=== PATIENT | male | born 1945 | race Caucasian/White ===

== ENCOUNTER 2025-06-27 11:00 | Day surgery (SDC) | payer MEDICARE, OTHER, SELFPAY ==
--- OUTSIDE RECORDS SUMMARY | 2025-06-20 17:28 | XMS_ITS | Encounter Summary ---
Author Organization [facility] Address Pending sale to [facility] [address] [address] Phone Care Team Providers Care Vault Mechanic Name Role Phone Osvaldo Menjivar MD Unavailable [phone] Marek Morley MD Primary Care Provider [phone] Lola Salgado MD, MS Unavailable Jorgito Edge MD Unavailable [phone] Encounter Details Date Type Department Care Team (Late st Contact Info) Description 07/04/2024 Procedure Pass [facility] Electrophysiology Lab [address] [place] [address] Social History Tobacco Use Types Packs/Day Years Used Date Smoking Tobacco: Former Smokeless Tobacco: Never Alcohol Use Standard Drinks/Week Comments Not Asked 0 (1 standard drink = 0.6 oz pur e alcohol) Education Answer Date Recorded Are you interested in more education? Not on dorinda e 01/01/2023 Are you concerned about learning? Not on file 01/01/2023 No 01/01/2023 No 01/01/2023 Digital Access Answer Date Recorded No 02/01/2023 No 02/01/2023 Reliable internet access at home? Not on file 02/01/2023 Device with a working camera? Not on file Sex and Gender Information Value Date Recorded Sex Assigned at Not on file Legal Sex Male 11:44 AM EST Gender Identity Not on file Sexual Orientation Not on file documented as of this encounter Plan of Treatment Upcoming Encounters Date Type Department Care Team (Late st Contact Info) Description 07/11/2024 Procedure Pass [facility] EKG [address] [place] [address] 07/04/2025 7:15 AM EDT Hospital Encounter [facility] EKG [address] [place] [address] Lola Salgado MD, MS [address] [address] [email or web address] Arrived 08/16/2025 11:30 AM EST Office Visit [facility]- Cardiology [address] [address] Rand Yanez, SHUTTLELESS LOOM WEAVER [address] [address] [email or web address] documented as of this encounter Visit Diagnoses Not on filedocumented in this encounter Additional Health Concerns Assessment Noted Time PHQ-2 Depression Total Score: 0 02/13/20 21 9:09 AM EDT documented as of this encounter Care Teams Vault Mechanic Relationship Specialty Start Date End Date Marek Morley MD [address] [place] [address] PCP - General Internal Medicine 10/29/22 Osvaldo Menjivar MD [address] [place] [address] Soyfreeze Operator Cardiology 11/04/15 Lola Salgado MD, MS [address] [address] [email or web address] Cardiology 02/25/23 Jorgito Edge MD [address] [place] [address] Interventional Cardiology 04/20/24 documented as of this encounter Additional Source Comments The information contained in this document represents components of the legal health record. It is not the complete legal health record.[facility]
--- OUTSIDE RECORDS SUMMARY | 2025-06-20 17:28 | XMS_ITS | Encounter Summary ---
Author Organization [facility] Address [facility] [employer] [address] [address] Phone Care Team Providers Care Engineering And Operations Director Name Role Phone Jonathan Okeefe MD Primary Care Provider Unavaila Osvaldo Hernandez MD Unavailable [phone] Alvino Burns MD Unavailable Unavail able Marek Morley MD Primary Care Provider [phone] Lola Salgado MD, MS Unavailable Jorgito Edge MD Unavailable [phone] Encounter Details Date Type Department Care Team (Latest Contact Info) Description 04/03/2022 Ancillary Orders [facility] Cardiovascular Clinic [address] [place] [address] Osvaldo Luong MD [email or web address] Other chest pain Social History Tobacco Use Types Packs/Day Years Used Date Smoking Tobacco: Former Smokeless Tobacco: Never Alcohol Use Standard Drinks/Week Comments Not Asked 0 (1 standard drink = 0.6 oz pur e alcohol) Sex and Gender Information Value Date Recorded Sex Assigned at Not on file Legal Sex Male 11:44 AM EST Gender Identity Not on file Sexual Orientation Not on file documented as of this encounter Plan of Treatment Upcoming Encounters Date Type Department Care Team (Late st Contact Info) Description 07/11/2024 Procedure Pass [facility] EKG [address] [place] [address] 07/04/2025 7:15 AM EDT Hospital Encounter [facility] EKG [address] [place] [address] Lola Salgado MD, MS [address] [address] [email or web address] 08/16/2025 11:30 AM EST Office Visit [address] [address] Rand Yanez, STAMP ANALYST [address] [address] [email or web address] documented as of this encounter Visit Diagnoses Diagnosis Other chest pain Paroxysmal atrial fibrillation Atrial fibrillation documented in this encounter Additional Health Concerns Assessment Noted Time PHQ-2 Depression Total Score: 0 02/13/20 21 9:09 AM EDT documented as of this encounter Care Teams Engineering And Operations Director Relationship Specialty Start Date End Date Jonathan Okeefe MD PCP - General Internal Medicine 10/02/15 10/28/22 Marek Morley MD [address] [place] [address] PCP - General Internal Medicine 10/29/22 Osvaldo Menjivar MD [address] [place] [address] Skein Straightener Cardiology 11/04/15 Alvino Burns MD Referring Physician Cardiology 11/04/15 02/24/23 Lola Salgado MD, MS [address] [place] [address] [email or web address] Cardiology 02/25/23 Jorgito Edge MD [address] [place] [address] Interventional Cardiology 04/20/24 documented as of this encounter Additional Source Comments The information contained in this document represents components of the legal health record. It is not the complete legal health record.[facility]
--- OUTSIDE RECORDS SUMMARY | 2025-06-20 17:28 | XMS_ITS | Encounter Summary ---
Author Organization [facility] Address [facility] [address] [place] [address] Phone Care Team Providers Care Rib Cutter Name Role Phone Osvaldo Menjivar MD Unavailable [phone] Marek Morley MD Primary Care Provider [phone] Lola Salgado MD, MS Unavailable [phone] Jorgito Edge MD Unavailable [phone] Encounter Details Date Type Department Care Team (Late st Contact Info) Description 07/03/2024 Procedure Pass [facility] [address] [place] [address] Social History Tobacco Use Types Packs/Day Years [...] st Contact Info) Description 07/11/2024 Procedure Pass [facility] EKG [address] [place] [address] 07/04/2025 7:15 AM EDT Hospital Encounter [facility] EKG [address] [place] [address] Lola Salgado MD, MS [address] [address] [email or web address] Arrived 08/16/2025 11:30 AM EST Office Visit [facility]- [address] [address] Rand Yanez, LOOM OPERATOR APPRENTICE [address] [address] [email or web address] documented as of this encounter Visit Diagnoses Not on filedocumented in this encounter Additional Health Concerns Assessment Noted Time PHQ-2 Depression Total Score: 0 02/13/20 21 9:09 AM EDT documented as of this encounter Care Teams Rib Cutter Relationship Specialty Start Date End Date Marek Morley MD [address] [place] [address] PCP - General Internal Medicine 10/29/22 Osvaldo Menjivar MD [address] [place] [address] Special Weapons Unit Officer Cardiology 11/04/15 Lola Salgado MD, MS [address] [place] [address] [email or web address] Cardiology 02/25/23 Jorgito Edge MD [address] [place] [address] Interventional Cardiology 04/20/24 documented as of this encounter Additional Source Comments The information contained in this document represents components of the legal health record. It is not the complete legal health record.[facility]
--- OUTSIDE RECORDS SUMMARY | 2025-06-20 17:28 | XMS_ITS | Encounter Summary ---
Author Organization [facility] Address [facility] [employer] [address] [address] Phone Care Team Providers Care Tobacco Hanger Name Role Phone Jonathan Okeefe MD Primary Care Provider Unavaila Osvaldo Hernandez MD Unavailable [phone] Alvino Burns MD Unavailable Unavail able Marek Morley MD Primary Care Provider [phone] Lola Salgado MD, MS Unavailable Jorgito Edge MD Unavailable [phone] Encounter Details Date Type Department Care Team (Latest Contact Info) Description 04/03/2022 Ancillary Orders [facility] Cardiovascular Clinic [address] [place] [address] Osvaldo Luong MD [email or web address] Other chest pain Social History Tobacco Use [...] st Contact Info) Description 07/11/2024 Procedure Pass [facility] EKG [address] [place] [address] 07/04/2025 7:15 AM EDT Hospital Encounter [facility] EKG [address] [place] [address] Lola Salgado MD, MS [address] [address] [email or web address] 08/16/2025 11:30 AM EST Office Visit [address] [address] Rand Yanez, RECAPPER [address] [address] [email or web address] documented as of this encounter Visit Diagnoses Diagnosis Other chest pain Paroxysmal atrial fibrillation Atrial fibrillation documented in this encounter Additional Health Concerns Assessment Noted Time PHQ-2 Depression Total Score: 0 02/13/20 21 9:09 AM EDT documented as of this encounter Care Teams Tobacco Hanger Relationship Specialty Start Date End Date Jonathan Okeefe MD PCP - General Internal Medicine 10/02/15 10/28/22 Marek Morley MD [address] [place] [address] PCP - General Internal Medicine 10/29/22 Osvaldo Menjivar MD [address] [place] [address] Power Plant Mechanic Cardiology 11/04/15 Alvino Burns MD Referring Physician Cardiology 11/04/15 02/24/23 Lola Salgado MD, MS [address] [place] [address] [email or web address] Cardiology 02/25/23 Jorgito Edge MD [address] [place] [address] Interventional Cardiology 04/20/24 documented as of this encounter Additional Source Comments The information contained in this document represents components of the legal health record. It is not the complete legal health record.[facility]
--- OUTSIDE RECORDS SUMMARY | 2025-06-20 17:28 | XMS_ITS | Encounter Summary ---
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; Chronic anticoagulation Social History Tobacco Use Types Packs/Day Years [...] st Contact Info) Description 07/11/2024 Procedure Pass [facility] EKG [address] [place] [address] 07/04/2025 7:15 AM EDT Hospital Encounter [facility] EKG [address] [place] [address] Lola Salgado MD, MS [address] [address] [email or web address] Arrived 08/16/2025 11:30 AM EST Office Visit [facility] [address] [address] Rand Yanez COLLET MAKER [address] [address] [email or web address] documented as of this encounter Results * CT 3D Reconstruction CT Angio Chest (07/03/2024 11:44 AM EDT) Anatomical Region Laterality Modality Chest Computed Tomogra phy 07/03/2024 12:3 2 PM EDT Impressions 07/10/2024 11:18 AM EST * 3 right and 2 left pulmonary veins. * The esophagus is posterior to the left atrium, left side of the spine and close to the left inferior pulmonary vein. * No left atrial appendage thrombus. ATTESTATION: Van Perez, as teaching physician have reviewed the images, if any, for this patient's exam, and if necessary, have edited the report originally created by Mike Interiano. Narrative 07/10/2024 11:18 AM EST Reason for exam (per EHR order): * Atrial fibrillation pre or post ablation TECHNIQUE: Cardiac CT Angiography Scans: Angiogram - ECG gated Cardiac Delay (60 sec) - ECG gated Cardiac Oral contrast: None. Intravenous contrast: Per protocol. 3D Post-processinD Volume-rendering COMPARISON: No prior chest CT FINDINGS: CARDIAC: Pulmonary Veins: There are 3 right and 2 left pulmonary veins. The esophagus is posterior to the left atrium, left side of the spine and close to the left inferior pulmonary vein. Left atrial appendage: There is no evidence of a filling defect in both arterial and delayed images to suggest thrombus within the left atrial appendage. Other Cardiac Findings: Coronary Arteries: This study was not optimized for the assessment of the coronary arteries. Mild coronary artery calcifications. Prior LAD stent. Chambers: Mild left atrial dilation with a 2.9 x 2.3 cm focal outpouching of the anterior wall mild right atrial dilation The right ventricle is normal in size. The left ventricle is normal in size. Myocardium: Normal left ventricular thickness. Valves: Trileaflet aortic valve with mild leaflet calcifications. Normal mitral valve. Pericardium: No pericardial effusion, calcification or thickening. Aorta: Normal size. Moderate atherosclerosis. Pulmonary arteries: Normal size. INCIDENTAL FINDINGS: Scattered calcified granulomas, no suspicious pulmonary nodules. Degenerative disease in visualized thoracic spine. Normal-appearing chest wall. 3 cm hypodense lesion in the liver, likely a cyst. Procedure Note Alvino Wayne MD - 07/10/2024 Reason for exam (per EHR order): * Atrial fibrillation pre or postablation TECHNIQUE: Cardiac CT Angiography Scans: Angiogram - ECG gated Cardiac Delay (60 sec) - ECG gated Cardiac Oral contrast: None. Intravenous contrast: Per protocol. 3D Post-processinD Volume-rendering COMPARISON: No prior chest CT FINDINGS: CARDIAC: Pulmonary Veins: There are 3 right and 2 left pulmonary veins. The esophagus is posterior to the left atrium, left side of the spine andclose to the left inferior pulmonary vein. Left atrial appendage: There is no evidence of a filling defect in botharterial and delayed images to suggest thrombus within the left atrialappendage. Other Cardiac Findings: Coronary Arteries: This study was not optimized for the assessment of thecoronary arteries. Mild coronary artery calcifications. Prior LAD stent. Chambers: Mild left atrial dilation with a 2.9 x 2.3 cm focal outpouchingof the anterior wall mild right atrial dilation The right ventricle isnormal in size. The left ventricle is normal in size. Myocardium: Normal left ventricular thickness. Valves: Trileaflet aortic valve with mild leaflet calcifications. Normalmitral valve. Pericardium: No pericardial effusion, calcification or thickening. Aorta: Normal size. Moderate atherosclerosis. Pulmonary arteries: Normal size. INCIDENTAL FINDINGS: Scattered calcified granulomas, no suspiciouspulmonary nodules. Degenerative disease in visualized thoracic spine.Normal-appearing chest wall. 3 cm hypodense lesion in the liver, likely acyst. IMPRESSION: * 3 right and 2 left pulmonary veins. * The esophagus is posterior to the left atrium, left side of the spineand close to the left inferior pulmonary vein. * No left atrial appendage thrombus. ATTESTATION: Van Perez, as teaching physician have reviewed theimages, if any, for this patient's exam, and if necessary, have edited thereport originally created by Mike Interiano. 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 Chronic anticoagulation Encounter for long-term (current) use of anticoagulants Paroxysmal atrial fibrillation Atrial fibrillation documented in this encounter Additional Health Concerns Assessment Noted Time PHQ-2 Depression Total Score: 0 02/13/20 21 9:09 AM EDT documented as of this encounter Care Teams Flour Worker Relationship Specialty Start Date End Date Marek Morley MD [address] [place] [address] PCP - General Internal Medicine 10/29/22 Osvaldo Menjivar MD [address] [address] Graphic Design Teacher Cardiology 11/04/15 Lola Salgado MD, MS [address] [place], [place] [address] [place] [address] [email or web address] Cardiology 02/25/23 Jorgito Edge MD [address] [place] [address] Interventional Cardiology 04/20/24 documented as of this encounter Additional Source Comments The information contained in this document represents components of the legal health record. It is not the complete legal health record.[facility]
--- OUTSIDE RECORDS SUMMARY | 2025-06-20 17:28 | XMS_ITS | Encounter Summary ---
Author Organization [facility] Address [facility] [employer] [address] [address] Phone Care Team Providers Care Nascar Racer Name Role Phone Osvaldo Menjivar MD Unavailable [phone] Marek Morley MD Primary Care Provider [phone] Lola Salgado MD, MS Unavailable [phone] Jorgito Edge MD Unavailable [phone] Encounter Details Date Type Department Care Team (Late st Contact Info) Description 07/11/2024 Procedure Pass [facility] EKG [address] [place] [address] Social History Tobacco Use Types Packs/Day Years [...] st Contact Info) Description 07/11/2024 Procedure Pass [facility] EKG [address] [place] [address] 07/04/2025 7:15 AM EDT Hospital Encounter [facility] EKG [address] [place] [address] Lola Salgado MD, MS [address] [address] [email or web address] Arrived 08/16/2025 11:30 AM EST Office Visit [facility] [address] [address] Rand Yanez, CONTINUOUS IMPROVEMENT INTERN [address] [address] [email or web address] documented as of this encounter Visit Diagnoses Not on filedocumented in this encounter Additional Health Concerns Assessment Noted Time PHQ-2 Depression Total Score: 0 02/13/20 21 9:09 AM EDT documented as of this encounter Care Teams Nascar Racer Relationship Specialty Start Date End Date Marek Morley MD [address] [place] [address] PCP - General Internal Medicine 10/29/22 Osvaldo Menjivar MD [address] [place] [address] Back Tender Pulp Drier Cardiology 11/04/15 Lola Salgado MD, MS [address] [place] [address] [email or web address] Cardiology 02/25/23 Jorgito Edge MD [address] [place] [address] Interventional Cardiology 04/20/24 documented as of this encounter Additional Source Comments The information contained in this document represents components of the legal health record. It is not the complete legal health record.[facility]
--- OUTSIDE RECORDS SUMMARY | 2025-06-20 17:28 | XMS_ITS | Encounter Summary ---
Author Organization [facility] Address [facility] [address] [address] Phone Care Team Providers Care Blade Sharpener Name Role Phone Jonathan Okeefe MD Primary Care Provider Unavaila Osvaldo Hernandez MD Unavailable [phone] Alvino Burns MD Unavailable Unavail able Marek Morley MD Primary Care Provider [phone] Lola Salgado MD, MS Unavailable [phone] Jorgito Edge MD Unavailable [phone] Encounter Details Date Type Department Care Team (Latest Contact Info) Description 04/03/2022 Ancillary Orders [facility] Cardiovascular Clinic [address] [place] [address] Osvaldo Luong MD [email or web address] Other chest pain Social History Tobacco Use [...] st Contact Info) Description 07/11/2024 Procedure Pass [facility] EKG [address] [place] [address] 07/04/2025 7:15 AM EDT Hospital Encounter [facility] EKG [address] [place] [address] Lola Salgado MD, MS [address] [address] [email or web address] 08/16/2025 11:30 AM EST Office Visit [address] [address] Rand Yanez, REGIONAL LOSS PREVENTION MANAGER [address] [address] [email or web address] documented as of this encounter Visit Diagnoses Diagnosis Other chest pain Paroxysmal atrial fibrillation Atrial fibrillation documented in this encounter Additional Health Concerns Assessment Noted Time PHQ-2 Depression Total Score: 0 02/13/20 21 9:09 AM EDT documented as of this encounter Care Teams Blade Sharpener Relationship Specialty Start Date End Date Jonathan Okeefe MD PCP - General Internal Medicine 10/02/15 10/28/22 Marek Morley MD [address] [place] [address] PCP - General Internal Medicine 10/29/22 Osvaldo Menjivar MD [address] [place] [address] Bulk Intake Worker Cardiology 11/04/15 Alvino Burns MD Referring Physician Cardiology 11/04/15 02/24/23 Lola Salgado MD, MS [address] [place] [address] [email or web address] Cardiology 02/25/23 Jorgito Edge MD [address] [place] [address] Interventional Cardiology 04/20/24 documented as of this encounter Additional Source Comments The information contained in this document represents components of the legal health record. It is not the complete legal health record.[facility]
--- OUTSIDE RECORDS SUMMARY | 2025-06-20 17:28 | XMS_ITS | Encounter Summary ---
Author Organization [facility] Address [address] [place] [address] Phone Care Team Providers Care Fagot Heater Name Role Phone Jonathan Okeefe MD Primary Care Provider Unavaila Osvaldo Hernandez MD Unavailable [phone] Alvino Burns MD Unavailable Unavail able Marek Morley MD Primary Care Provider [phone] Lola Salgado MD, MS Unavailable [phone] Jorgito Edge MD Unavailable [phone] Encounter Details Date Type Department Care Team (Late st Contact Info) Description 04/03/2022 Ancillary Orders [facility] Nuclear Medicine [address] [place] [address] Osvaldo Luong MD [email or web address] Other chest pain Social History Tobacco Use [...] st Contact Info) Description 07/11/2024 Procedure Pass [facility] EKG [address] [place] [address] 07/04/2025 7:15 AM EDT Hospital Encounter [facility] EKG [address] [place] [address] Lola Salgado MD, MS [address] [address] [email or web address] 08/16/2025 11:30 AM EST Office Visit [address] [address] Rand Yanez, OTHER SPORTS OFFICIAL [address] [address] [email or web address] documented as of this encounter Visit Diagnoses Diagnosis Other chest pain Paroxysmal atrial fibrillation Atrial fibrillation documented in this encounter Additional Health Concerns Assessment Noted Time PHQ-2 Depression Total Score: 0 02/13/20 21 9:09 AM EDT documented as of this encounter Care Teams Fagot Heater Relationship Specialty Start Date End Date Jonathan Okeefe MD PCP - General Internal Medicine 10/02/15 10/28/22 Marek Morley MD [address] [place] [address] PCP - General Internal Medicine 10/29/22 Osvaldo Menjivar MD [address] [place] [address] [employer]iconductors Wafer Breaker Cardiology 11/04/15 Alvino Burns MD Referring Physician Cardiology 11/04/15 02/24/23 Lola Salgado MD, MS [address] [place] [address] [email or web address] Cardiology 02/25/23 Jorgito Edge MD [address] [place] [address] Interventional Cardiology 04/20/24 documented as of this encounter Additional Source Comments The information contained in this document represents components of the legal health record. It is not the complete legal health record.[facility]
--- OUTSIDE RECORDS SUMMARY | 2025-06-20 17:28 | XMS_ITS | Encounter Summary ---
Author Organization [facility] Address [facility] [employer] [address] [address] Phone Care Team Providers Care Health And Safety Tech Name Role Phone Jonathan Okeefe MD Primary Care Provider Unavaila Osvaldo Hernandez MD Unavailable lAvino Burns MD Unavailable Unavail able Marek Morley MD Primary Care Provider [phone] Lola Salgado MD, MS Unavailable Jorgito Edge MD Unavailable [phone] Encounter Details Date Type Department Care Team (Latest Contact Info) Description 04/03/2022 Ancillary Orders [facility] [address] [place] [address] Osvaldo Luong MD [email or web address] Other chest pain Social [...] st Contact Info) Description 07/11/2024 Procedure Pass [facility] EKG [address] [place] [address] 07/04/2025 7:15 AM EDT Hospital Encounter [facility] EKG [address] [place] [address] Lola Salgado MD, MS [address] [address] [email or web address] 08/16/2025 11:30 AM EST Office Visit [address] [address] Rand Yanez, EVENTS ASSISTANT [address] [address] [email or web address] documented as of this encounter Visit Diagnoses Diagnosis Other chest pain Paroxysmal atrial fibrillation Atrial fibrillation documented in this encounter Additional Health Concerns Assessment Noted Time PHQ-2 Depression Total Score: 0 02/13/20 21 9:09 AM EDT documented as of this encounter Care Teams Health And Safety Tech Relationship Specialty Start Date End Date Jonathan Okeefe MD PCP - General Internal Medicine 10/02/15 10/28/22 Marek Morley MD [address] [place] [address] PCP - General Internal Medicine 10/29/22 Osvaldo Menjivar MD [address] [place] [address] Cartridge Gauger Cardiology 11/04/15 Alvino Burns MD Referring Physician Cardiology 11/04/15 02/24/23 Lola Salgado MD, MS [address] [place] [address] [email or web address] Cardiology 02/25/23 Jorgito Edge MD [address] [place] [address] Interventional Cardiology 04/20/24 documented as of this encounter Additional Source Comments The information contained in this document represents components of the legal health record. It is not the complete legal health record.[facility]
--- OUTSIDE RECORDS SUMMARY | 2025-06-20 17:28 | XMS_ITS | Encounter Summary ---
Author Organization [facility] Address [address] [place] [address] Phone Care Team Providers Care Customer Resolution Specialist Name Role Phone Jonathan Okeefe MD Primary Care Provider Unavaila Osvaldo Hernandez MD Unavailable [phone] Alvino Burns MD Unavailable Unavail able Marek Morley MD Primary Care Provider [phone] Lola Salgado MD, MS Unavailable [phone] Jorgito Edge MD Unavailable [phone] Reason for Referral * MRI/CAT Scan - Closed Specialty Diagnoses / Procedures Referred By Contac t Referred To Contact Radiology Diagnoses Preoperative cardiovascular examination Paroxysmal atrial fibrillation Procedures NC Myocardial Perfusion Stress Single NC Myocardial Perfusion Pharmacologic Stress Multiple CHG MYOCARDIAL SPECT MULTIPLE STUDIES CHG MYOCARDIAL SPECT SINGLE STUDY AT REST OR STRESS Rosalia Diamond PA-C Phone: tel: fax: [email or web address] Referral ID Status Reason Start Date Expiration Date Visits Re quested Visits Authorized [id number] Closed 04/17/2021 04/17/2022 1 1 Encounter Details Date Type Department Care Team (Latest Contact Info) Description 04/17/2021 Ancillary Orders [facility] [address] [place] [address] Rosalia Diamond PA-C [address] [address] [email or web address] Preoperative cardiovascular examination; Paroxysmal atrial fibrillation Social History Tobacco Use Types Packs/Day Years [...] Upcoming Encounters Date Type Department Care Team ([facility] Contact Info) Description 07/11/2024 Procedure Pass [facility] EKG [address] [place] [address] 07/04/2025 7:15 AM EDT Hospital Encounter [facility] EKG [address] [place] [address] Lola Salgado MD, MS [address] [address] [email or web address] 08/16/2025 11:30 AM EST Office Visit [facility]- Cardiology [address] [address] Rand Yanez BOG WORKER [address] [address] [email or web address] documented as of this encounter Results * NC Myocardial Perfusion Stress Single (04/17/2021 11:59 AM EDT) Anatomical Region Laterality Modality Heart Nuclear Medicine 04/17/2021 10:0 0 AM EDT Narrative 04/17/2021 3:[address] Diamond, Your patient Nicholas Traore, a 76 year old male with no known CAD was referred to us for an exercise treadmill myocardial perfusion SPECT study to evaluate for fatigue. He has no cardiac risk factors. The patient's resting ECG showed normal sinus rhythm and sinus bradycardia. He was on the following medications at the time of testing: Sotalol, Eliquis. Tc-99m Sestamibi Exercise/Xiidpclcage-Zzbsca-zfnt SPECT Protocol: Mr. Traore underwent a myocardial perfusion SPECT study following the IV administration of 10.2 mCi of Tc-99m Sestamibi at peak stress. Gated myocardial perfusion SPECT images were obtained post stress. Stress imaging was performed on 17-Apr-2021. Mr. Traore exercised for 6:17 minutes of a Ryland protocol. The heart rate increased from 48 bpm at rest to a peak heart rate of 92 bpm (64% age predicted maximal heart rate), and the blood pressure remained unchanged at 130/80 mm Hg (RPP: 76344). Exercise was terminated due to fatigue. The symptomatic response to exercise was non-ischemic. The blood pressure response was normal. The ECG response to exercise indicated no significant ST-T changes. No exercise-induced arrhythmia was observed. Mr. Traore's functional capacity was 7.4 METS, which is average for his age and gender. His heart rate recovery was 4 bpm (normal HRR > 12 bpm). His Rodrigez treadmill score was 6.3 which places him at a low prognostic risk (lower than 1% mortality per year). Because the patient could not exercise to an adequate workload, the patient received 0.4 mg Regadenoson intravenously at peak exercise. At peak vasodilator stress the heart rate was 78 bpm, and the blood pressure was 136/66 mmHg. There were no ST segment changes with vasodilator stress. No arrhythmia was observed. The patient tolerated the Regadenoson injection well with no side effects Intensity Heart Blood RPE Speed (Grade Rate Pressure (Scale (MPH) or Abbott) (bmp) (mm Hg) of 10) BASELINE Supine 48 130/80 Standing 53 120/70 STRESS Stage 1 1.7 10 77 120/70 4 Stage 2 2.5 12 90 130/70 6 Stage 3 3.4 14 92 RECOVERY 1 Minute 88 160/80 3 Minute 74 160/80 5 Minute 78 136/66 8 Minutes 74 120/64 Stress-only Myocardial Perfusion Images: Image quality was excellent. The images demonstrated normal LV size and normal tracer uptake in the lungs. They also demonstrated normal RV size with normal RV tracer uptake. There were no regional perfusion defects seen on the stress images. Semi-quantitative analysis: The scan results demonstrated no evidence of ischemia and/or scar (summed stress score: 0). Reference %Myocardium Scan Results abnormal 0% Normal 1-4% Mildly abnormal 5-9% Moderately abnormal >=10% Severely abnormal Gated SPECT: The images demonstrated a post-stress LV ejection fraction of 67% and ESVI 14 ml/m^2 with normal LV volumes. There was normal regional wall motion and thickening. The RV function appeared normal. Incidental Findings: None. In summary, the test results were: 1. Functional Capacity: 7.4 METS 2. Peak Heart Rate: Exercise heart rate was 92 bpm (64% age-predicted maximal heart rate). Regadenoson was given to achieve maximal hyperemia. 3. Symptomatic Response: Non-ischemic. 4. Peak Blood Pressure: 130/70 mm Hg. 5. Blood Pressure Response: Normal. 6. ECG Response: No ischemic ECG changes detected at heart rate achieved. 7. Stress-induced Arrhythmia: None. 8. Myocardial Perfusion: Normal. 9. Global LV Function: Normal. Final impression: 1. The patient's test results are normal and suggest no evidence of flow-limiting CAD. 2. Normal global LV systolic function. Stress ECG tracings available from [facility] [employer] [employer]. Thank you for referring this patient to us. Sincerely yours, Román Maldonado M.D., Van Loader Anson Caldwell M.D., Cardiology Imaging Fellow Silvia Carlson M.D., M.P.H., Attending Physician Procedure Note Silvia Carlson MD, MPH - 04/17/[address] Diamond, Your patient Nicholas Traore, a 76 year old male with no known CAD wasreferred to us for an exercise treadmill myocardial perfusion SPECT studyto evaluate for fatigue. He has no cardiac risk factors. The patient's resting ECG showed normal sinus rhythm and sinusbradycardia. He was on the following medications at the time of testing:Sotalol, Eliquis. Tc-99m Sestamibi Exercise/Tsugambuexj-Ctjvvq-xtvg SPECT Protocol: Mr. Traore underwent a myocardial perfusion SPECT study following the IVadministration of 10.2 mCi of Tc-99m Sestamibi at peak stress. Gatedmyocardial perfusion SPECT images were obtained post stress. Stressimaging was performed on 17-Apr-2021. Mr. Traore exercised for 6:17 minutes of a Ryland protocol. The heartrate increased from 48 bpm at rest to a peak heart rate of 92 bpm (64% agepredicted maximal heart rate), and the blood pressure remained unchangedat 130/80 mm Hg (RPP: 12415). Exercise was terminated due to fatigue. The symptomatic response toexercise was non-ischemic. The blood pressure response was normal. TheECG response to exercise indicated no significant ST-T changes. Noexercise-induced arrhythmia was observed. Mr. Traore's functional capacity was 7.4 METS, which is average for hisage and gender. His heart rate recovery was 4 bpm (normal HRR > 12 bpm).His Rodirgez treadmill score was 6.3 which places him at a low prognostic risk(lower than 1% mortality per year). Because the patient could not exercise to an adequate workload, thepatient received 0.4 mg Regadenoson intravenously at peak exercise. Atpeak vasodilator stress the heart rate was 78 bpm, and the blood pressurewas 136/66 mmHg. There were no ST segment changes with vasodilator stress. No arrhythmia was observed. Thepatient tolerated the Regadenoson injection well with no side effects Intensity Heart Blood RPE Speed (Grade Rate Pressure (Scale (MPH) or Abbott) (bmp) (mm Hg) of 10) BASELINE Supine 48 130/80 Standing 53 120/70 STRESS Stage 1 1.7 10 77 120/70 4 Stage 2 2.5 12 90 130/70 6 Stage 3 3.4 14 92 RECOVERY 1 Minute 88 160/80 3 Minute 74 160/80 5 Minute 78 136/66 8 Minutes 74 120/64 Stress-only Myocardial Perfusion Images: Image quality was excellent. The images demonstrated normal LV size andnormal tracer uptake in the lungs. They also demonstrated normal RV sizewith normal RV tracer uptake. There were no regional perfusion defects seen on the stress images. Semi-quantitative analysis: The scan results demonstrated no evidence of ischemia and/or scar (summedstress score: 0). Reference %Myocardium Scan Results abnormal 0% Normal 1-4% Mildly abnormal 5-9% Moderately abnormal >=10% Severely abnormal Gated SPECT: The images demonstrated a post-stress LV ejection fraction of 67% and ESVI14 ml/m^2 with normal LV volumes. There was normal regional wall motionand thickening. The RV function appeared normal. Incidental Findings: None. In summary, the test results were: 1. Functional Capacity: 7.4 METS 2. Peak Heart Rate: Exercise heart rate was 92 bpm (64% age-predictedmaximal heart rate). Regadenoson was given to achieve maximalhyperemia. 3. Symptomatic Response: Non-ischemic. 4. Peak Blood Pressure: 130/70 mm Hg. 5. Blood Pressure Response: Normal. 6. ECG Response: No ischemic ECG changes detected at heart rateachieved. 7. Stress-induced Arrhythmia: None. 8. Myocardial Perfusion: Normal. 9. Global LV Function: Normal. Final impression: 1. The patient's test results are normal and suggest no evidence offlow-limiting CAD. 2. Normal global LV systolic function. Stress ECG tracings available from [facility] [employer] [employer]. Thank you for referring this patient to us. Sincerely yours, Román Maldonado M.D., Van Loader Anson Caldwell M.D., Cardiology Imaging Fellow Silvia Carlson M.D., M.P.H., Attending Physician Lola Salgado MD, MS CV [place] CARDIAC Final Resul t documented in this encounter Visit Diagnoses Diagnosis Preoperative cardiovascular examination Pre-operative cardiovascular examination Paroxysmal atrial fibrillation Atrial fibrillation Preoperative cardiovascular examination Pre-operative cardiovascular examination Paroxysmal atrial fibrillation Atrial fibrillation Paroxysmal atrial fibrillation Atrial fibrillation documented in this encounter Additional Health Concerns Assessment Noted Time PHQ-2 Depression Total Score: 0 02/13/20 21 9:09 AM EDT documented as of this encounter Care Teams Customer Resolution Specialist Relationship Specialty Start Date End Date Jonathan Okeefe MD PCP - General Internal Medicine 10/02/15 10/28/22 Marek Morley MD [address] [place] [address] PCP - General Internal Medicine 10/29/22 Osvaldo Menjivar MD [address] [place] [address] [address] [place] [address] Hatchery Helper Cardiology 11/04/15 Alvino Burns MD Referring Physician Cardiology 11/04/15 02/24/23 Lola Salgado MD, MS [address] [place] [address] [place] [address] [email or web address] Cardiology 02/25/23 Jorgito Edge MD [address] [place] [address] Interventional Cardiology 04/20/24 documented as of this encounter Additional Source Comments The information contained in this document represents components of the legal health record. It is not the complete legal health record.[facility]
--- OUTSIDE RECORDS SUMMARY | 2025-06-20 17:28 | XMS_ITS | Encounter Summary ---
Author Organization [facility] Address [facility] [address] [place] [address] Phone Care Team Providers Care Compensation Programs Manager Name Role Phone Osvaldo Menjivar MD Unavailable [phone] Marek Morley MD Primary Care Provider [phone] Lola Salgado MD, MS Unavailable [phone] Jorgito Edge MD Unavailable [phone] Encounter Details Date Type Department Care Team (Late st Contact Info) Description 05/04/2024 Procedure Pass [facility] [address] [place] [address] Social History Tobacco Use Types Packs/Day Years [...] st Contact Info) Description 07/11/[address] [facility] EKG [address] [place] [address] 07/04/2025 7:15 AM EDT Hospital Encounter [facility] EKG [address] [place] [address] Lola Salgado MD, MS [address] [address] [email or web address] Arrived 08/16/2025 11:30 AM EST Office Visit [facility] [address] [address] Rand Yanez, LEAD SIMULATION MODELING ENGINEER [address] [address] [email or web address] documented as of this encounter Visit Diagnoses Not on filedocumented in this encounter Additional Health Concerns Assessment Noted Time PHQ-2 Depression Total Score: 0 02/13/20 21 9:09 AM EDT documented as of this encounter Care Teams Compensation Programs Manager Relationship Specialty Start Date End Date Marek Morley MD [address] [place] [address] PCP - General Internal Medicine 10/29/22 Osvaldo Menjivar MD [address] [place] [address] Mold Capper Cardiology 11/04/15 Lola Salgado MD, MS [address] [place] [address] [email or web address] Cardiology 02/25/23 Jorgito Edge MD [address] [place] [address] Interventional Cardiology 04/20/24 documented as of this encounter Additional Source Comments The information contained in this document represents components of the legal health record. It is not the complete legal health record.[facility]
--- OUTSIDE RECORDS SUMMARY | 2025-06-20 17:28 | XMS_ITS | Encounter Summary ---
Author Organization [facility] Address [address] [place] [address] Phone Care Team Providers Care Long Term Care Phlebotomist Name Role Phone Jonathan Okeefe MD Primary Care Provider Unavaila Osvaldo Hernandez MD Unavailable Alvino Burns MD Unavailable Unavail able Marek Morley MD Primary Care Provider [phone] Lola Salgado MD, MS Unavailable Jorgito Edge MD Unavailable [phone] Encounter Details Date Type Department Care Team (Late st Contact Info) Description 02/12/2021 Procedure Pass [facility] Echocardiography [address] [place] [address] Social History Tobacco Use Types Packs/Day Years [...] st Contact Info) Description 07/11/2024 Procedure Pass [facility] EKG [address] [place] [address] 07/04/2025 7:15 AM EDT Hospital Encounter [facility] EKG [address] [place] [address] Lola Salgado MD, MS [address] [address] [email or web address] Arrived 08/16/2025 11:30 AM EST Office Visit [facility]- Cardiology - [address] [address] Rand Yanez, SKID MACHINE OPERATOR [address] [address] [email or web address] documented as of this encounter Visit Diagnoses Not on filedocumented in this encounter Additional Health Concerns Assessment Noted Time PHQ-2 Depression Total Score: 0 02/13/20 21 9:09 AM EDT documented as of this encounter Care Teams Long Term Care Phlebotomist Relationship Specialty Start Date End Date Jonathan Okeefe MD PCP - General Internal Medicine 10/02/15 10/28/22 Marek Morley MD [address] [place] [address] PCP - General Internal Medicine 10/29/22 Osvaldo Menjivar MD [address] [place] [address] Culinary Worker Cardiology 11/04/15 Alvino Burns MD Referring Physician Cardiology 11/04/15 02/24/23 Lola Salgado MD, MS [address] [place] [address] [email or web address] Cardiology 02/25/23 Jorgito Edge MD [address] [place] [address] Interventional Cardiology 04/20/24 documented as of this encounter Additional Source Comments The information contained in this document represents components of the legal health record. It is not the complete legal health record.[facility]
--- OUTSIDE RECORDS SUMMARY | 2025-06-20 17:28 | XMS_ITS | Encounter Summary ---
Author Organization [facility] Address [address] [place] [address] Phone Care Team Providers Care Eligibility Worker Name Role Phone Jonathan Okeefe MD Primary Care Provider Unavaila Osvaldo Hernandez MD Unavailable [phone] Alvino Burns MD Unavailable Unavail able Marek Morley MD Primary Care Provider [phone] Lola Salgado MD, MS Unavailable Jorgito Edge MD Unavailable [phone] Encounter Details Date Type Department Care Team (Late st Contact Info) Description 02/18/2022 Procedure Pass [facility] Echocardiography [address] [place] [address] Social History Tobacco Use Types Packs/Day Years [...] st Contact Info) Description 07/11/2024 Procedure Pass [facility] EKG [address] [place] [address] 07/04/2025 7:15 AM EDT Hospital Encounter [facility] EKG [address] [place] [address] Lola Salgado MD, MS [address] [address] [email or web address] Arrived 08/16/2025 11:30 AM EST Office Visit [facility]- Cardiology - [address] [address] Rand Yanez, PRICING CONSULTANT [address] [address] [email or web address] documented as of this encounter Visit Diagnoses Not on filedocumented in this encounter Additional Health Concerns Assessment Noted Time PHQ-2 Depression Total Score: 0 02/13/20 21 9:09 AM EDT documented as of this encounter Care Teams Eligibility Worker Relationship Specialty Start Date End Date Jonathan Okeefe MD PCP - General Internal Medicine 10/02/15 10/28/22 Marek Morley MD [address] [place] [address] PCP - General Internal Medicine 10/29/22 Osvaldo Menjivar MD [address] [place] [address] Stump Blower Cardiology 11/04/15 Alvino Burns MD Referring Physician Cardiology 11/04/15 02/24/23 Lola Salgado MD, MS [address] [place] [address] [email or web address] Cardiology 02/25/23 Jorgito Edge MD [address] [place] [address] Interventional Cardiology 04/20/24 documented as of this encounter Additional Source Comments The information contained in this document represents components of the legal health record. It is not the complete legal health record.[facility]
--- OUTSIDE RECORDS SUMMARY | 2025-06-20 17:29 | XMS_ITS | Clinical Summary ---
Author Organization [facility] Address [facility] [address] [address] Phone Care Team Providers Care Mash Grinder Name Role Phone Osvaldo Menjivar MD Unavailable [phone] Marek Morley MD Primary Care Provider [phone] Lola Salgado MD, MS Unavailable [phone] Jorgito Edge MD Unavailable [phone] Allergies Active Allergy Reactions Criticality Noted Date Comments Amoxil (Amoxicillin) 11/14/2015 Sensitivity when taken orally Medications losartan (COZAAR) 25 MG tablet 25 mg 2 (two) times a day. 03/05/2024 Active atorvastatin (LIPITOR) 40 MG tablet Take 40 mg by mouth. 02/15/2024 Active ELIQUIS 5 mg tablet TAKE 1 TABLET BY MOUTH TWICE A DAY 180 tablet 3 08/07/2024 Active amLODIPine (NORVASC) 10 MG tablet 10 mg. 10/18/2024 Active Active Problems Problem Noted Date Diagnosed Date Primary hypertension 04/20/2024 Coronary artery disease invo lving [place] coronary artery of [place] heart with angina pectoris 04/20/2024 Chronic anticoagulation 02/25/2023 Encounter for monitoring amiodarone therapy 02/05 Atrial fibrillation 02/25/2023 Immunizations Immunization Administration Dates Next Due Pneumococcal polysaccharide PPSV23 06/27/2020 Social History Tobacco Use Types Packs/Day Years Used Date Smoking Tobacco: Former Smokeless Tobacco: Never Tobacco Cessation:Counseling Given: Not Answered Alcohol Use Standard Drinks/Week Comments Not Asked [...] on file Sexual Orientation Not on file Last Filed Vital Signs Vital Sign Reading Time Taken Comments Blood Pressure 116/60 10/19/2024 9:44 AM EST Pulse 59 10/19/2024 9:44 AM EST Temperature 36.3 C (97.3 F) 07/04/2024 2:30 PM EDT Respiratory Rate 24 07/04/2024 6:00 PM EDT Oxygen Saturation 100% 10/19/2024 9:44 AM EST Inhaled Oxygen Concentration - - Weight 80.6 kg (177 lb 11.2 oz) 10/19/2024 9:44 AM EST Height 180.3 cm (5' 10.98 ) 10/19/2024 9:[address] Body Mass Index 24.8 10/19/2024 9:44 AM EST Plan of Treatment Upcoming Encounters Date Type Department Care Team (Late st Contact Info) Description 07/11/2024 Procedure Pass [facility] EKG 70 [place] [address] 07/04/2025 7:15 AM EDT Hospital Encounter [facility] EKG [address] [place] [address] Lola Salgado MD, MS [address] [place] [address] [email or web address] Arrived 08/16/2025 11:30 AM EST Office Visit [facility]- Cardiology - [address] [address] Rand Yanez, PATIENT REGISTRATION REP [address] [place] [address] [email or web address] Health Maintenance Due Date Last Done Comments Adult Td,Tdap Booster 1945 DEPRESSION SCREENING 02/12/2022 02/12/2021 INFLUENZA VACCINE (#1) 2025 , 06/22/2023, 06/24/2022, Additional history exists BLOOD PRESSURE 04/18/2025 10/19/2024 COVID-19 VACCINE ( season) 2025 05/11/2024, 06/22/2023, 05/26/2022, Additional history exists CREATININE LEVEL 07/04/2025 07/04/2024, , 11/08/2023 POTASSIUM LEVEL 07/04/2025 07/04/2024, 04/06, 11/08/2023 PNEUMOCOCCAL VACCINES (50+ years) Completed 08/24/2023, 06/27/2020, 08/11/2015 RSV VACCINE Completed 10/05/2023 ZOSTER VACCINES Completed 12/14/2023, 10/11/2023 HEPATITIS A VACCINES Aged Out No long er eligible based on patient's age to complete this topic HIB VACCINES Aged Out No longer eligi ble based on patient's age to complete this topic MENINGOCOCCAL VACCINES (ACWY) Aged Out No longer eligible based on patient's age to complete this topic MENINGOCOCCAL VACCINES (B) Aged Out N o longer eligible based on patient's age to complete this topic Medical Devices Not on file Procedures Procedure Name Priority Date/Time Associated Diagnosis Comments BASIC METABOLIC PANEL STAT 07/04/2024 10:00 AM EDT from Last 3 Months or Most Recently Relevant to Health Maintenance Results * (ABNORMAL) Basic metabolic panel (07/04/2024 10:00 AM EDT) SODIUM 141 136 - 145 mmol/L [facility] POTASSIUM 4.3 3.4 - 5.1 mmol/L [facility] CHLORIDE 104 98 - 107 mmol/L [facility] CO2 25 22 - 31 mmol/L [facility] BUN 14 6 - 23 mg/dL [facility] CREATININE 1.14 0.50 - 1.20 mg/dL [facility] GLUCOSE 108(H) 70 - 100 mg/dL [facility] CALCIUM 9.4 8.8 - 10.7 mg/dL [facility] EGFR 65 >59 mL/min/1.7 3m2 [facility] Comment:Estimated glomerular filtration rate calculated using the CKD-EPI refit equation. ANION GAP 12 7 - 17 mmol/L [facility] Blood 07/04/2024 10:0 0 AM EDT 07/04/2024 10:35 AM EDT Lola Salgado MD, MS LAB BLOOD ORDERABLES Final Result Performing Organization Address City/State/[facility] de Phone Number [facility] [address] [place] [phone] from Last 3 Months or Most Recently Relevant to Health Maintenance Insurance MEDICARE PART A & [place] [id number] [facility] MEDICARE SUPPLEMENT MEDICARE PART A & B [facility] MEDICARE SUPPLEMENT MEDICARE PART A & B [facility] MEDICARE SUPPLEMENT MEDICARE PART A & B [facility] MEDICARE SUPPLEMENT MEDICARE PART A & B [employer] MEDICARE SUPPLEMENT MEDICARE PART A & B [employer] MEDICARE SUPPLEMENT MEDICARE PART A & B [facility] MEDICARE SUPPLEMENT MEDICARE PART A & B [employer] MEDICARE SUPPLEMENT MEDICARE PART A & B [employer] [facility] MEDICARE SUPPLEMENT [facility] [id number] Advance Directives For more information, please contact: [phone] (9AM - 5PM [place], Wednesday-Wednesday) * Full Code (Latest Code Status on File) Date Activated Date Inactivated Comments 07/04/2024 2:33 PM Question Answer Comments Code Status Confirmed With: Patient * Full Code Date Activated Date Inactivated Comments 07/04/2024 2:33 PM 07/04/2024 2:33 PM Question Answer Comments Code Status Confirmed With: Patient Care Teams Mash Grinder Relationship Specialty Start Date End Date Marek Morley MD [address] [place] [address] PCP - General Internal Medicine 10/29/22 Osvaldo Menjivar MD 300 [facility] [address] [place] [address] Patient Care Assistant Cardiology 11/04/15 Lola Salgado MD, MS 75 [facility] [place] [address] [email or web address] Cardiology 02/25/23 Jorgito Edge MD [address] [place] [address] Interventional Cardiology 04/20/24 Additional Source Comments The information contained in this document represents components of the legal health record. It is not the complete legal health record.[facility]
--- OUTSIDE RECORDS SUMMARY | 2025-06-20 17:29 | XMS_ITS | Encounter Summary ---
Author Organization [facility] Address [address] [place] [address] Phone Care Team Providers Care Sectionizer Name Role Phone Jonathan Okeefe MD Primary Care Provider Unavaila Osvaldo Hernandez MD Unavailable [phone] Alvino Burns MD Unavailable Unavail able Marek Morley MD Primary Care Provider [phone] Lola Salgado MD, MS Unavailable [phone] Jorgito Edge MD Unavailable [phone] Encounter Details Date Type Department Care Team (Late st Contact Info) Description 11/14/2015 Transcribe Orders [facility] Echocardiography [address] [place] [address] [email or web address] Social History Tobacco Use Types Packs/Day Years Used Date Smoking Tobacco: Former Alcohol Use Standard Drinks/Week Comments Not Asked [...] st Contact Info) Description 07/11/2024 Procedure Pass [facility] EKG [address] [place] [address] 07/04/2025 7:15 AM EDT Hospital Encounter [facility] EKG [address] [place] [address] Lola Salgado MD, MS [address] [address] [email or web address] Arrived 08/16/2025 11:30 AM EST Office Visit [facility]- Cardiology [address] [address] Rand Yanez, APPLIANCE TESTER [address] [address] [email or web address] documented as of this encounter Visit Diagnoses Not on filedocumented in this encounter Additional Health Concerns Assessment Noted Time PHQ-2 Depression Total Score: 0 11/14/19 16 1:50 PM EST documented as of this encounter Care Teams Sectionizer Relationship Specialty Start Date End Date Jonathan Okeefe MD PCP - General Internal Medicine 10/02/15 10/28/22 Marek Morley MD [address] [place] [address] PCP - General Internal Medicine 10/29/22 Osvaldo Menjivar MD [address] [place] [address] Radial Saw Operator Cardiology 11/04/15 Alvino Burns MD Referring Physician Cardiology 11/04/15 02/24/23 Lola Salgado MD, MS [address] [place] [address] [email or web address] Cardiology 02/25/23 Jorgito Edge MD [address] [place] [address] Interventional Cardiology 04/20/24 documented as of this encounter Additional Source Comments The information contained in this document represents components of the legal health record. It is not the complete legal health record.[facility]
--- OUTSIDE RECORDS SUMMARY | 2025-06-20 17:29 | XMS_ITS | Encounter Summary ---
Author Organization [facility] Address [address] [place] [address] Phone Care Team Providers Care Credit Advisor Name Role Phone Jonathan Okeefe MD Primary Care Provider Unavaila Osvaldo Hernandez MD Unavailable [phone] Alvino Burns MD Unavailable Unavail able Marek Morley MD Primary Care Provider [phone] Juan Daniel Borrero MD, MS Unavailable [phone] Jorgito Edge MD Unavailable [phone] Encounter Details Date Type Department Care Team (Latest Contact Info) Description 04/15/2016 Transcribe Orders [facility] Echocardiography 70 [place] [address] Maryuri [email or web address] Cardiac dysrhythmia, unspecified Social History Tobacco Use Types Packs/Day Years [...] st Contact Info) Description 07/11/2024 Procedure Pass [facility] EKG [address] [place] [address] 07/04/2025 7:15 AM EDT Hospital Encounter [facility] EKG [address] [place] [address] Juan Daniel Borrero MD, MS [facility] [place] [address] [email or web address] Arrived 08/16/2025 11:30 AM EST Office Visit [facility]- [address] [address] Rand Yanez, PHONE TRIAGE SPECIALIST [address] [facility] [place] [address] [email or web address] documented as of this encounter Procedures Procedure Name Priority Date/Time Associated Diagnosis Comments ECG 12-LEAD Routine 04/15/2016 3:41 PM EDT Cardiac dysrhythmia, unspecified documented in this encounter Results * ECG 12 lead (04/15/2016 3:41 PM EDT) Ventricular Rate EKG/MIN 48 BPM [facility] Atrial Rate 48 BPM [facility] ME Interval 194 ms [facility] QRS Duration 100 ms [facility] QT Interval 460 ms [facility] QTC Interval 410 ms [facility] P [place] 28 degrees [facility] R [place] -5 degrees [facility] T [place] 33 degrees [facility] 04/15/2016 3:41 PM EDT Narrative [facility] - 05/19/2016 3:16 PM EDT Sinus bradycardia Otherwise normal ECG When compared with ECG of 14-NOV-2015 13:55, No significant change was found Juan Daniel Borrero MD, MS ECG ORDERABLES Final Resul t [facility] documented in this encounter Visit Diagnoses Diagnosis Cardiac dysrhythmia, unspecified Paroxysmal atrial fibrillation Atrial fibrillation documented in this encounter Additional Health Concerns Assessment Noted Time PHQ-2 Depression Total Score: 0 04/15/20 16 3:37 PM EDT documented as of this encounter Care Teams Credit Advisor Relationship Specialty Start Date End Date Jonathan Okeefe MD PCP - General Internal Medicine 10/02/15 10/28/22 Marek Morley MD [address] [place] [address] PCP - General Internal Medicine 10/29/22 Osvaldo Menjivar MD [address] [address] Junior Underwriter Cardiology 11/04/15 Alvino Burns MD Referring Physician Cardiology 11/04/15 02/24/23 Juan Daniel Borrero MD, MS [address] [place] [address] [place] [address] [email or web address] Cardiology 02/25/23 Jorgito Edge MD [address] [place] [address] Interventional Cardiology 04/20/24 documented as of this encounter Additional Source Comments The information contained in this document represents components of the legal health record. It is not the complete legal health record.[facility]
--- OUTSIDE RECORDS SUMMARY | 2025-06-20 17:29 | XMS_ITS | Encounter Summary ---
Author Organization [facility] Address [address] [place] [address] Phone Care Team Providers Care Head Control Clerk Name Role Phone Jonathan Okeefe MD Primary Care Provider Unavaila Osvaldo Hernandez MD Unavailable [phone] Alvino Burns MD Unavailable Unavail able Marek Morley MD Primary Care Provider [phone] Lola Salgado MD, MS Unavailable Jorgito Edge MD Unavailable [phone] Encounter Details Date Type Department Care Team (Late Contact Info) Description 06/08/2018 Transcribe Orders [facility] Echocardiography 70 [place] [address] Halle Shafer 75 [place] [address] [email or web address] Social History Tobacco Use Types Packs/Day Years [...] Encounters Date Type Department Care Team (Late Contact Info) Description 07/11/2024 Procedure Pass [facility] EKG 70 [place] [address] 07/04/2025 7:15 AM EDT Hospital Encounter [facility] EKG [address] [place] [address] Lola Salgado MD, MS [address] [address] [email or web address] 08/16/2025 11:30 AM EST Office Visit [facility]- [address] [address] Rand Yanez, START UP SPECIALIST [address] [address] [email or web address] documented as of this encounter Visit Diagnoses Not on filedocumented in this encounter Additional Health Concerns Assessment Noted Time PHQ-2 Depression Total Score: 0 06/08/20 18 11:09 AM EDT documented as of this encounter Care Teams Head Control Clerk Relationship Specialty Start Date End Date Jonathan Okeefe MD PCP - General Internal Medicine 10/02/15 10/28/22 Marek Morley MD [address] [place] [address] PCP - General Internal Medicine 10/29/22 Osvaldo Menjivar MD [address] [place] [address] Skilled Trades Teacher Cardiology 11/04/15 Alvino Burns MD Referring Physician Cardiology 11/04/15 02/24/23 Lola Salgado MD, MS [address] [place] [address] [email or web address] Cardiology 02/25/23 Jorgito Edge MD 9 [place] [address] Interventional Cardiology 04/20/24 documented as of this encounter Additional Source Comments The information contained in this document represents components of the legal health record. It is not the complete legal health record.[facility]
--- OUTSIDE RECORDS SUMMARY | 2025-06-20 17:29 | XMS_ITS | Encounter Summary ---
Author Organization [facility] Address [address] [place] [address] Phone Care Team Providers Care Financial Services Assistant Name Role Phone Jonathan Okeefe MD Primary Care Provider Unavaila Osvaldo Hernandez MD Unavailable [phone] Alvino Burns MD Unavailable Unavail able Marek Morley MD Primary Care Provider [phone] Lola Salgado MD, MS Unavailable Jorgito Edge MD Unavailable [phone] Encounter Details Date Type Department Care Team (Latest Contact Info) Description 02/18/2022 Transcribe Orders [facility] EKG 70 [place] [address] Jonathan Okeefe MD Cardiac arrhythmia, unspecified cardiac arrhythmia type Social History Tobacco Use Types Packs/Day Years [...] st Contact Info) Description 07/11/2024 Procedure Pass [facility] EKG 70 [place] [address] 07/04/2025 7:15 AM EDT Hospital Encounter [facility] EKG [address] [place] [address] Lola Salgado MD, MS 75 [facility] [place] [address] [email or web address] Arrived 08/16/2025 11:30 AM EST Office Visit [facility]- [address] [address] Rand Yanez, LEAK GANG SUPERVISOR 75 [facility] [place] [address] [email or web address] documented as of this encounter Procedures Procedure Name Priority Date/Time Associated Diagnosis Comments ECG 12-LEAD Routine 02/18/2022 12:27 PM EDT Cardiac arrhythmia, unspecified cardiac arrhythmia type documented in this encounter Results * ECG 12-LEAD (02/18/2022 12:27 PM EDT) Ventricular Rate EKG/MIN 44 BPM [facility] Atrial Rate [address] [address] Interval 176 ms [facility] QRS Duration 90 ms [facility] QT Interval 484 ms [facility] QTC Interval 413 ms [facility] P [place] 31 degrees [facility] R Wave [place] -20 degrees [facility] T Wave [place] 23 degrees [facility] 02/18/2022 12:2 7 PM EDT Narrative [facility] - 03/13/2022 7:50 PM EDT Marked sinus bradycardia Abnormal ECG When compared with ECG of 12-FEB-2021 09:15, No significant change was found Osvaldo Luong MD ECG ORDERABLES Final Result [facility] documented in this encounter Visit Diagnoses Diagnosis Cardiac arrhythmia, unspecified cardiac arrhythmia type Paroxysmal atrial fibrillation Atrial fibrillation documented in this encounter Additional Health Concerns Assessment Noted Time PHQ-2 Depression Total Score: 0 02/13/20 21 9:09 AM EDT documented as of this encounter Care Teams Financial Services Assistant Relationship Specialty Start Date End Date Jonathan Okeefe MD PCP - General Internal Medicine 10/02/15 10/28/22 Marek Morley MD [address] [place] [address] PCP - General Internal Medicine 10/29/22 Osvaldo Menjivar MD [address] [address] Forward Air Controller/Air Officer Cardiology 11/04/15 Alvino Burns MD Referring Physician Cardiology 11/04/15 02/24/23 Lola Salgado MD, MS [address] [place], [place] [address] [place] [address] [email or web address] Cardiology 02/25/23 Jorgito Edge MD [address] [place] [address] Interventional Cardiology 04/20/24 documented as of this encounter Additional Source Comments The information contained in this document represents components of the legal health record. It is not the complete legal health record.[facility]
--- OUTSIDE RECORDS SUMMARY | 2025-06-20 17:29 | XMS_ITS | Encounter Summary ---
Author Organization [facility] Address [address] [place] [address] Phone Care Team Providers Care Rotary Operator Name Role Phone Jonathan Okeefe MD Primary Care Provider Unavaila Osvaldo Hernandez MD Unavailable [phone] Alvino Burns MD Unavailable Unavail able Marek Morley MD Primary Care Provider [phone] Lola Salgado MD, MS Unavailable [phone] Jorgito Edge MD Unavailable [phone] Encounter Details Date Type Department Care Team (Latest Contact Info) Description 02/04/2022 Ancillary Orders [facility] [address] [place] [address] Jessika Chadwick PA-C [address] [place] [address] [email or web address] Paroxysmal atrial fibrillation Social History Tobacco Use [...] st Contact Info) Description 07/11/2024 Procedure Pass [facility] EKG 70 [place] [address] 07/04/2025 7:15 AM EDT Hospital Encounter [facility] EKG 70 [place] [address] Lola Salgado MD, MS 75 [facility] [place] [address] [email or web address] Arrived 08/16/2025 11:30 AM EST Office Visit [facility]- Cardiology - [address] [address] Rand Yanez, DIGITAL MARKETING ASSOCIATE [address] [address] [email or web address] documented as of this encounter Results * Patch Monitor up to 15 days (01/13/2022 5:45 PM EDT) Anatomical Region Laterality Modality Heart Other Jessika Chadwick PA-C CV CARDIAC SERVICES ORDERAB LES Final Result documented in this encounter Visit Diagnoses Diagnosis Paroxysmal atrial fibrillation Atrial fibrillation Paroxysmal atrial fibrillation Atrial fibrillation documented in this encounter Additional Health Concerns Assessment Noted Time PHQ-2 Depression Total Score: 0 02/13/20 21 9:09 AM EDT documented as of this encounter Care Teams Rotary Operator Relationship Specialty Start Date End Date Jonathan Okeefe MD PCP - General Internal Medicine 10/02/15 10/28/22 Marek Morley MD [address] [place] [address] PCP - General Internal Medicine 10/29/22 Osvaldo Menjivar MD [address] [place] [address] Patient Care Manager Cardiology 11/04/15 Alvino Burns MD Referring Physician Cardiology 11/04/15 02/24/23 Lola Salgado MD, MS [address] [address] [email or web address] Cardiology 02/25/23 Jorgito Edge MD [address] [place] [address] Interventional Cardiology 04/20/24 documented as of this encounter Additional Source Comments The information contained in this document represents components of the legal health record. It is not the complete legal health record.[facility]
--- OUTSIDE RECORDS SUMMARY | 2025-06-20 17:29 | XMS_ITS | Encounter Summary ---
Author Organization [facility] Address [address] [place] [id number] Phone Care Team Providers Care Pad Assembler Name Role Phone Jonathan Okeefe MD Primary Care Provider Unavaila Osvaldo Hernandez MD Unavailable [phone] Alvino Burns MD Unavailable Unavail able Marek Morley MD Primary Care Provider [phone] Lola Salgado MD, MS Unavailable Jorgito Edge MD Unavailable [phone] Encounter Details Date Type Department Care Team (Late st Contact Info) Description 01/13/2022 Procedure Pass [facility] EKG [address] [place] [address] Social History Tobacco Use Types Packs/Day Years [...] st Contact Info) Description 07/11/2024 Procedure Pass [facility] EKG [address] [place] [address] 07/04/2025 7:15 AM EDT Hospital Encounter [facility] EKG [address] [place] [address] Lola Salgado MD, MS [address] [address] [email or web address] 08/16/2025 11:30 AM EST Office Visit [facility]- Cardiology [address] [address] Rand Yanez, NUCLEAR CRITICALITY SAFETY ENGINEER [address] [address] [email or web address] documented as of this encounter Visit Diagnoses Not on filedocumented in this encounter Additional Health Concerns Assessment Noted Time PHQ-2 Depression Total Score: 0 02/13/20 21 9:09 AM EDT documented as of this encounter Care Teams Pad Assembler Relationship Specialty Start Date End Date Jonathan Okeefe MD PCP - General Internal Medicine 10/02/15 10/28/22 Marek Morley MD [address] [place] [id number] PCP - General Internal Medicine 10/29/22 Osvaldo Menjivar MD [address] [place] [id number] Floral Designer Salesperson Cardiology 11/04/15 Alvino Burns MD Referring Physician Cardiology 11/04/15 02/24/23 Lola Salgado MD, MS [address] [place] [id number] [email or web address] Cardiology 02/25/23 Jorgito Edge MD [address] [place] [id number] Interventional Cardiology 04/20/24 documented as of this encounter Additional Source Comments The information contained in this document represents components of the legal health record. It is not the complete legal health record.[facility]
[2025-06-21 14:24] VITALS: BMI 24.7
[2025-06-27 11:31] VITALS: BP 135/71; PULSE 71; RESP 16; TEMP 36.2; O2SAT 100
[2025-06-27] MEDS: Lactated Ringers 1,000 ML 100 ML IVCONT (11:31)
--- NOTE | 2025-06-27 13:57 | HO.ANESPROP2 ---
Documented by User: Julienne Barth NP 06/26/25 10:17 HPI - Anesthesia Eval Consult details Narrative: 80yo M for Bilateral Medial Rectus Eye Muscle Recession Medically optimized per PCP Follows [facility] cardiology for CAD c/b NSTEMI s/p stents x 2 12/2023, afib (s/p ablation 06/2024) - previously followed by [facility], requested most recent echo [facility] Past Medical History Medical History (Updated 06/21/25 @ 14:24 by Aaliyah Vuong RN) NSTEMI (non-ST elevated myocardial infarction) Polymyalgia rheumatica Hyperlipidemia HTN (hypertension) Atrial fibrillation CAD (coronary artery disease) Surgical History Surgical History (Updated 06/21/25 @ 14:22 by Aaliyah Vuong RN) History of cardiac ablation for atrial fibrillation Hx of bilateral cataract extraction Hx of shoulder surgery Hx of appendectomy History of lumbar laminectomy Hx of heart artery stent Social History Social History (Updated 06/21/25 @ 09:51 by Aaliyah Vuong RN) Are you a primary technical healthcare consultant to a significant other at home: No Patient Tobacco Use Status: Former Tobacco user Tobacco use type: Cigarette Use of substances other than those prescribed or required for medical reasons: No Have you been hit, kicked, punched, or otherwise hurt by someone within the past year? If so, by whom?: No Spiritual Healthcare Practices: no Pentecostalism Healthcare Practices: no Cultural Healthcare Practices: no Are you DNR?: No Advance Directives on File: No Poor oral hygiene: No Meds Allergies Allergy/AdvReac Type Severity Reaction Status Date / Time amoxicillin Allergy Unknown allergic Verified 06/21/25 14:23 to oral form only Home Medications ?Medication ?Instructions ?Recorded ?Confirmed ?Last Taken ?Type amlodipine 5 mg tablet 5 mg PO DAILY 06/21/25 06/21/25 Unknown History apixaban 5 mg tablet (Eliquis) 5 mg PO BID 06/21/25 06/21/25 Unknown History atorvastatin 40 mg tablet 40 mg PO DAILY 06/21/25 06/21/25 Unknown History losartan 50 mg tablet 50 mg PO DAILY 06/21/25 06/21/25 Unknown History meclizine 12.5 mg tablet 12.5 mg PO TID PRN Vertigo 06/21/25 06/21/25 Unknown History Exam Height,Weight and Vital Signs: Height 5 ft 11 in Weight 80.195 kg Narrative Narrative: EKG 04/2024 SR with 1st degree AV block LAD Assessment and Plan Assessment Anesthesia Assessment: Chart Reviewed Documented by User: Nikki Delgado DO 06/27/25 13:59 [facility] Past Medical History Medical History (Updated 06/21/25 @ 14:24 by Aaliyah Vuong RN) NSTEMI (non-ST elevated myocardial infarction) Polymyalgia rheumatica Hyperlipidemia HTN (hypertension) Atrial fibrillation CAD (coronary artery disease) Family History Family history of problems with anesthesia: No Surgical History Surgical History (Updated 06/21/25 @ 14:22 by Aaliyah Vuong RN) History of cardiac ablation for atrial fibrillation Hx of bilateral cataract extraction Hx of shoulder surgery Hx of appendectomy History of lumbar laminectomy Hx of heart artery stent History of Problems with Anesthesia: No Social History Social History (Updated 06/21/25 @ 09:51 by Aaliyah Vuong RN) Are you a primary technical healthcare consultant to a significant other at home: No Patient Tobacco Use Status: Former Tobacco user Tobacco use type: Cigarette Use of substances other than those prescribed or required for medical reasons: No Have you been hit, kicked, punched, or otherwise hurt by someone within the past year? If so, by whom?: No Spiritual Healthcare Practices: no Pentecostalism Healthcare Practices: no Cultural Healthcare Practices: no Are you DNR?: No Advance Directives on File: No Poor oral hygiene: No Meds Allergies Allergy/AdvReac Type Severity Reaction Status Date / Time amoxicillin Allergy Unknown allergic Verified 06/21/25 14:23 to oral form only Home Medications ?Medication ?Instructions ?Recorded ?Confirmed ?Last Taken ?Type amlodipine 5 mg tablet 5 mg PO DAILY 06/21/25 06/21/25 Unknown History apixaban 5 mg tablet (Eliquis) 5 mg PO BID 06/21/25 06/21/25 Unknown History atorvastatin 40 mg tablet 40 mg PO DAILY 06/21/25 06/21/25 Unknown History losartan 50 mg tablet 50 mg PO DAILY 06/21/25 06/21/25 Unknown History meclizine 12.5 mg tablet 12.5 mg PO TID PRN Vertigo 06/21/25 06/21/25 Unknown History Exam Exam Date and Time: 06/27/25 1357 Height,Weight and Vital Signs: Height 5 ft 11 in Weight 80.195 kg Vital Signs Temperature 97.1 F 06/27/25 11:31 Pulse Rate 71 06/27/25 11:31 Respiratory Rate 16 06/27/25 11:31 Blood Pressure 135/71 06/27/25 11:31 Pulse Oximetry 100 06/27/25 11:31 Oxygen Delivery Method Room Air 06/27/25 11:31 Temperature 97.1 F 06/27/25 11:31 Pulse Rate 71 06/27/25 11:31 Respiratory Rate 16 06/27/25 11:31 Blood Pressure 135/71 06/27/25 11:31 Pulse Oximetry 100 06/27/25 11:31 Oxygen Delivery Method Room Air 06/27/25 11:31 Airway Mallampati Class: II TM Dist: >3cm Neck ROM: Full Loose/Missing/Broken Teeth: No (patient denies any loose or broken teeth) Heart: S1S2 Lungs: CTAB Assessment and Plan Assessment Anesthesia Assessment: Anesthesia Plan Discussed and Chart Reviewed Final Anesthetic Review Family History of Problems with Anesthesia: No History of Problems with Anesthesia: No NPO: Yes ASA Class: II Final Preanesthetic Review: No Changes in Pt Med Stat, Meds/Allgs Chart Reviewed, Consent Obtained/Reviewed and Anes Risks/Benef Reviewed Patient Risk: Low Procedure Risk: Low Anesthetic Plan Anesthetic Plan: GA and Agree w/ Assess. and Plan Disposition: Standard PACU
[2025-06-27 15:07] VITALS: BP 144/76; PULSE 60; RESP 12; TEMP 36.1; O2SAT 100
[2025-06-27 15:12] VITALS: BP 130/75; PULSE 71; RESP 20; O2SAT 100
[2025-06-27 15:17] VITALS: BP 135/76; PULSE 66; RESP 17; O2SAT 99
--- NOTE | 2025-06-27 15:17 | HO.OPHTHAL ---
Ophthalmology Operative Note Date of Service: 06/27/25 Narrative: Diagnosis exotropia. Postoperative diagnosis same. Procedure bilateral medial rectus resections of [address] Khan. Anesthesia general. Complications none. The patient was brought to the operating room placed under general anesthesia. The eyes were prepped and draped in the usual sterile ophthalmic fashion. A lid speculum was placed in the right eye and a peritomy was created around the medial rectus muscle. The medial rectus was hooked and a 3 mm resection marked off with cautery. The resection point was secured with a double-armed Vicryl suture and the distal muscle resected. The resection point was then drawn forward to the original insertion with the Vicryl suture. Conjunctiva was closed with interrupted Vicryl sutures. An identical procedure was then performed in the left eye. The patient was then awoken from general anesthesia and discharged to postoperative recovery in good condition.
[2025-06-27 15:22] VITALS: BP 134/74; PULSE 69; RESP 12; O2SAT 97
[2025-06-27 15:37] VITALS: BP 132/74; PULSE 72; RESP 13; TEMP 36.4; O2SAT 99
== END 2025-06-27 16:23 | disposition home or self-care (01) ==
PROVIDERS: PCP Internal Medicine; Visit Provider Ophthalmology
PROC: (CPT 67311; principal; 2025-06-27 14:20)
DX: H51.11 Convergence insufficiency (principal); I10 Essential (primary) hypertension; E78.2 Mixed hyperlipidemia; I48.0 Paroxysmal atrial fibrillation; I25.10 Atherosclerotic heart disease of native coronary artery without angina pectoris; I25.2 Old myocardial infarction; Z95.5 Presence of coronary angioplasty implant and graft; M35.3 Polymyalgia rheumatica; Z79.01 Long term (current) use of anticoagulants; Z79.899 Other long term (current) drug therapy; Z88.1 Allergy status to other antibiotic agents; Z87.891 Personal history of nicotine dependence; Z98.890 Other specified postprocedural states
CPT/HCPCS: 67311; J0330; J1100; J2003; J2405; J2704; J3010